=== PATIENT | male | born 1950 | race Caucasian/White ===

== ENCOUNTER → 2017-04-21 | Outpatient (CLI) | payer MEDICARE ==
--- NOTE | 2017-04-21 10:18 | ECHOF ---
Referral Reason:I25.5 Ischemic Cardiomyopathy MEASUREMENTS -------- HEIGHT: 182.9 cm WEIGHT: 77.1 kg BP: IVSd: 0.8 cm (0.6 - 1.1) LVIDd: 7.1 cm (3.9 - 5.3) LVPWd: 1.3 cm (0.6 - 1.1) IVSs: 0.8 cm LVIDs: 6.1 cm LVPWs: 1.0 cm LAESV Index (A-L): 37.42 ml/m Ao Diam: 3.1 cm (2.0 - 3.7) AV Cusp: 1.6 cm (1.5 - 2.6) LA Diam: 4.4 cm (2.7 - 3.8) MV EXCURSION: 14.577 mm (> 18.000) MV EF SLOPE: 56 mm/s (70 - 150) EPSS: 3.0 cm MV E Reagan: 0.90 m/s MV DecT: 157 ms MV A Reagan: 0.40 m/s MV E/A Ratio: 2.24 AR PHT: 204 ms RAP: 5.00 mmHg RVSP: 35.34 mmHg FINDINGS -------- AICD This was a technically good study. The left ventricle is severely dilated. There is mild concentric left ventricular hypertrophy. Th ere is severe global hypokinesis of LV . Overall left ventricular systolic function is severely imp aired with, an EF between 20 - 25 %. The right ventricle is normal in size and function. LA is midly dilated 29-33ml/m2. The right atrium is normal in size. Aortic valve is trileaflet and is mildly thickened. Trace amount of aortic regurgitation. Severe mitral regurgitation is present. There is a flail leaflet seen. Moderate to severe tricuspid regurgitation present. There is borderline pulmonary artery hypertensi on. The right ventricular systolic pressure, as measured by Doppler, is 35.34mmHg. Pulmonic valve appears structurally normal. The aortic root size is normal. Normal inferior vena cava with normal inspiratory collapse consistent with estimated right atrial pre ssure of 5 mmHg. The pericardium is normal. CONCLUSIONS -------- 1. AICD 2. This was a technically good study. 3. The left ventricle is severely dilated. 4. There is mild concentric left ventricular hypertrophy. 5. There is severe global hypokinesis of LV . 6. Overall left ventricular systolic function is severely impaired with, an EF between 20 - 25 %. 7. The right ventricle is normal in size and function. 8. LA is midly dilated 29-33ml/m2. 9. The right atrium is normal in size. 10. Aortic valve is trileaflet and is mildly thickened. 11. Trace amount of aortic regurgitation. 12. Severe mitral regurgitation is present. 13. There is a flail leaflet seen. 14. Moderate to severe tricuspid regurgitation present. 15. There is borderline pulmonary artery hypertension. 16. The right ventricular systolic pressure, as measured by Doppler, is 35.34mmHg. 17. Pulmonic valve appears structurally normal. 18. The aortic root size is normal. 19. Normal inferior vena cava with normal inspiratory collapse consistent with estimated right atrial pressure of 5 mmHg. 20. The pericardium is normal. DERRICKMAN HELPER: Kathleen Baires RDCS
== END | disposition home or self-care (01) ==
LOC: RADNMMAIN 08:48
PROVIDERS: ATTEND Internal Medicine Clinical Cardiac Electrophysiology
DX: I08.1 Rheumatic disorders of both mitral and tricuspid valves (principal); I25.2 Old myocardial infarction; I27.21 Secondary pulmonary arterial hypertension; Z91.041 Radiographic dye allergy status; Z88.8 Allergy status to other drugs, medicaments and biological substances
CPT/HCPCS: 93306

== ENCOUNTER → 2017-06-19 | Outpatient (CLI) | payer MEDICARE ==
--- NOTE | 2017-06-19 09:05 | BD ---
EXAMINATION TYPE: MG DEXA axial skeleton. DATE OF EXAM: CLINICAL HISTORY: Height: 70.25 inches Weight: 166 FRAX RISK QUESTIONS: Alcohol (3 or more units per day): no Family History (Parent hip fracture): no Glucocorticoids (More than 3mos): unsure (Ex: prednisone, prednisolone, methylprednisolone, dexamethasone, and hydrocortisone). History of Fracture in Adulthood: no Secondary Osteoporosis: 1. Type 1 Diabetes: no 2. Hyperthyroidism: no 4. Malnutrition: no 5. Chronic liver disease: no Rheumatoid Arthritis: no Current Tobacco Use: no RISK FACTORS HISTORY OF: Family History of Osteoporosis: unsure Active: yes Diet low in dairy products/other sources of calcium: no Lost more than 2 inches in height since high school: unsure..patient states may have been about 6 ft tall at one time Frequent falls: no Poor Health: somewhat Hyperparathyroidism: no Adrenal Insufficiency: no MEDICATIONS: Prednisone or other steroids: unsure Thyroid Medications: yes Which medication: Synthroid How Long: about 10 years Osteoporosis Medications: no Additional Medications: heart meds, mutivitamin Additional History: future heart transplant EXAM MEASUREMENTS: Bone mineral densitometry was performed using the [facility]. Bone mineral density as measured about the Lumbar spine is: ----- L1-L4(G/cm2): 1.050 T Score Values are as follows: ----- L2: -1.0 ----- L3: -1.1 ----- L4: -0.7 ----- L1-L4: -1.1 Bone mineral density BASELINE Bone mineral density about the R hip (g/cm2): 0.856 Bone mineral density about the L hip (g/cm2): 0.815 T Score values are as follows: -----R Neck: -1.3 -----L Neck: -1.6 -----R Total: -1.4 -----L Total: -1.9 Bone mineral density BASELINE IMPRESSION: Osteopenia (T Score between -2.5 and -1) in low back and both hips. There is slightly increased risk of fracture and the patient may be considered for treatment. Re-Screen 2-5 years. NOTE: T-SCORE=SD OF THE YOUNG ADULT MEAN.
--- NOTE | 2017-06-19 09:42 | US ---
EXAMINATION TYPE: US abdomen complete DATE OF EXAM: 06/19/2017 COMPARISON: US CLINICAL HISTORY: Z76.82 Organ transplant; per op evaluation for Heart transplant EXAM MEASUREMENTS: Liver Length: 11.6 cm Gallbladder Wall: 0.1 cm CBD: 0.5 cm Spleen: 8.9 cm Right Kidney: 9.4 x 5.0 x 4.1 cm Left Kidney: 9.0 x 5.1 x 4.1 cm Pancreas: Heterogeneous Liver: wnl Gallbladder: wnl Evidence for sonographic Escalera's sign: No CBD: wnl Spleen: wnl Right Kidney: lower pole junctional wedge defect noted lower pole Left Kidney: wnl Upper IVC: wnl Abd Aorta: ectatic appearance is noted with intimal wall thickening, especially mid and distal aorta Portions of pancreas are obscured by overlying bowel gas. Atherosclerotic and ectatic changes are see n in visualized aorta. Visualized liver is unremarkable. IMPRESSION: No acute findings evident.
== END | disposition home or self-care (01) ==
LOC: RADUSWWP 06:50
PROVIDERS: ATTEND Internal Medicine
DX: M85.852 Other specified disorders of bone density and structure, left thigh (principal); M85.851 Other specified disorders of bone density and structure, right thigh; M85.88 Other specified disorders of bone density and structure, other site; Z76.82 Awaiting organ transplant status
CPT/HCPCS: 76700; 77080

== ENCOUNTER 2017-10-03 12:58 | Day surgery (SDC) | payer MEDICARE ==
[2017-09-29 11:47] VITALS: BMI 24.3
[~2017-10-03 12:58] MED LIST: LIDOCAINE 1% 20 ML VIAL (10MG/ML) FOR IV START INTRADERMA PRN; MIDAZOLAM 2 MG/2 ML VIAL IV PRN; ceFAZolin 1,000 MG in SODIUM CHLORIDE 0.9% IRRIGATIO 250 ML IRRIGATION ONE
[2017-10-03] MEDS: SODIUM CHLORIDE 0.9% 1,000 ML IV SCH (13:28)
[2017-10-03] MEDS ORDERED: LIDOCAINE URO-JET JELLY 2% 5 ML KIT ONE (13:32)
[2017-10-03] MEDS ORDERED: LIDOCAINE 1% INJ 10MG/ML (20 ML MDV) ONE ×2 (17:21)
[2017-10-03] MEDS ORDERED: MIDAZOLAM 2 MG/2 ML VIAL ONE (17:31)
[2017-10-03] MEDS ORDERED: fentaNYL (PF) 50 MCG/ML 2 ML AMP ONE (17:31)
[2017-10-03] MEDS ORDERED: diphenhydrAMINE 50 MG/ML 1 ML VIAL ONE (17:31)
[2017-10-03] MEDS ORDERED: methylPREDNISolone SOD SUCCI 125 MG/2 ML VIAL ONE ×2 (17:31→17:37)
[2017-10-03] MEDS ORDERED: methylPREDNISolone SOD SUCCI 40 MG/ML 1 ML VIAL IV ONE (17:50)
[2017-10-03] MEDS: ceFAZolin IN SWFI 2 GM/20 ML SYRINGE IVP ONE ×2 (17:58→18:05)
[2017-10-03] MEDS ORDERED: LIDOCAINE 1% INJ 10MG/ML (20 ML MDV) SQ ONE ×3 (18:19→18:23)
[2017-10-03] MEDS ORDERED: IOPAMIDOL-250 50ML BTL IV ONE (18:48)
[2017-10-03] MEDS ORDERED: IOPAMIDOL-370 50ML BTL INJ ONE (19:05)
[2017-10-03] MEDS ORDERED: HYDROcodone/APAP 5-325MG 1 EACH TAB PO PRN (20:25)
[2017-10-03] MEDS ORDERED: ACETAMINOPHEN TAB 325 MG TAB PO PRN (20:25)
[2017-10-03] MEDS ORDERED: ACETAMINOPHEN IV (For NPO) 1,000 MG in EMPTY BAG 1 BAG IVPB ONE (20:25)
[2017-10-03] MEDS ORDERED: LEVOTHYROXINE 75 MCG TAB PO SCH (21:00)
[2017-10-03] MEDS ORDERED: LEVOTHYROXINE 100 MCG TAB PO SCH (21:00)
[2017-10-03] MEDS ORDERED: ATORVASTATIN 20 MG TAB PO SCH (21:00)
[2017-10-03] MEDS ORDERED: FERROUS SULFATE 325 MG TAB PO SCH (21:00)
[2017-10-03] MEDS ORDERED: MAGNESIUM CHLORIDE 71.5 MG PO SCH (21:00)
--- NOTE | 2017-10-03 21:17 | CE ---
CARDIAC ELECTROPHYSIOLOGY REPORT A 67-year-old male patient with severe ischemic cardiomyopathy, severe heart failure, mitral regurgitation, awaiting cardiac transplant versus LVAD. He has an underlying left bundle branch block. In view of his symptoms, the decision was made to proceed with an upgrade to a biventricular ICD. He already has a dual-chamber ICD in place. He has a history of ventricular tachycardia and ventricular fibrillation and is on nitrate and drug therapy. He has undergone VT ablations in the past. The patient is brought to the EP lab in a fasting state. Written informed consent was obtained prior to the procedure. The left shoulder area was prepped and draped as per protocol. 1% lidocaine was used for local anesthesia. An incision was made over the generator and carried down to the level of the generator. The old generator was explanted. This was a Medtronic defibrillator, model number [id number] Shira SIMMONS, serial number [id number]. Partial capsulectomy was performed. Access was obtained and at the level of the 2nd rib and the axillary vein and a wire was placed in the right heart. Appropriate sheaths were placed, coronary sinus was cannulated. Coronary sinus venogram was performed. The patient had a middle cardiac vein, posterolateral vein, lateral vein. The posterolateral and the lateral vein had a loop at a junction with coronary sinus and se did the posterolateral vein. The lead was more stable in the posterior lateral vein. Initially Medtronic leads were used; however, the leads would not go into the vein on account of this loop of vein very close to the coronary sinus body. A [employer] lead caregiver was used and this was placed distally into the LV in a very stable position. The lead was a [employer], model #[id number], 86 cm in length and serial number [id number]. The pacing thresholds were excellent for all LV poles. Finally, synchronized LV pacing was performed with his underlying QRS with LV2, LV3 poles. The threshold was 0.7 V at 0.5 milliseconds, impedance of 1184. LV sensing was 5.8 mV. The atrial, RV and LV leads were then connected to the new generator (Medtronic Viva quad XT, model number [id number], serial number [id number]. The RV and atrial thresholds are excellent. The wound was then closed in 3 layers and dressed per protocol. DFT testing was not performed on account of the severity of his heart failure. 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 PLAN: Continue current medications and follow up in the device clinic in 5 days. DENISE / AARON: [id number] /
[2017-10-03] MEDS: CARVEDILOL 3.125 MG TAB PO SCH (21:58)
[2017-10-03] MEDS: APIXABAN 5 MG TAB PO SCH (21:58)
[2017-10-03] MEDS: MEXILETINE 150 MG CAP PO SCH (21:59)
[2017-10-03] MEDS: LISINOPRIL 2.5 MG TAB PO SCH (21:59)
[2017-10-03] MEDS: ISOSORBIDE MONONITRATE 20 MG TAB PO SCH (21:59)
[2017-10-04] MEDS: ceFAZolin IN SWFI 2 GM/20 ML SYRINGE IVP SCH ×4 (00:16→17:28)
[2017-10-04] MEDS: SODIUM CHLORIDE 0.9% 1,000 ML IV SCH ×3 (05:32→05:33)
[2017-10-04] MEDS: LACTATED RINGERS 1,000 ML IV SCH ×2 (05:32→05:36)
--- NOTE | 2017-10-04 07:51 | P.PCN ---
Preoperative Diagnosis: Addendum to biventricular ICD upgrade This is long procedure on account of the patient's left ventricular coronary venous anatomy. He had a posterior lateral and a lateral vein both very tortuous especially at the junction with the coronary sinus body. The guidewire did not pass into these veins easily on account of the tortuosity veins The Medtronic LV time lead would not pass over the guidewire Finally [employer] medical LV lead was positioned in a very stable position in the posterior lateral vein with excellent pacing parameters impedances and sensing No diaphragmatic stimulation noted
--- NOTE | 2017-10-04 08:27 | DS ---
DISCHARGE SUMMARY Grant Lawton has severe heart failure with a left bundle branch block and severe ischemic cardiomyopathy, chronic systolic LV dysfunction, awaiting cardiac transplant who underwent upgrade to a biventricular ICD as a bridge to cardiac transplant. He is doing well this morning. Head and neck examination normal. He does have a hepatic jugular reflux. Heart sounds S1, S2 are normal. There is a pansystolic murmur of mitral regurgitation. Breath sounds are equal bilaterally. No rhonchi, no crackles. Abdomen is soft. Extremities are warm. The ICD site is healing well. There is no soakage, no hematoma. The chest x-ray was reviewed and appears to be in good position. SUGGEST: Complete IV antibiotics and if his device interrogation is within normal limits, he may go home and follow up in the device clinic in 5 days and follow up with me as scheduled. DENISE / AARON: [id number] /
[2017-10-04] MEDS ORDERED: ASPIRIN 81 MG PO SCH (09:00)
[2017-10-04] MEDS ORDERED: ISONIAZID 100 MG TABLET PO SCH (09:00)
[2017-10-04] MEDS ORDERED: POTASSIUM CHLORIDE ER 10 MEQ TAB.ER.PRT PO SCH (09:00)
[2017-10-04] MEDS ORDERED: SOTALOL 80 MG TAB PO SCH (09:00)
[2017-10-04] MEDS ORDERED: EZETIMIBE 10 MG TAB PO SCH (09:00)
[2017-10-04] MEDS ORDERED: BUMETANIDE 1 MG TAB PO SCH (09:00)
[2017-10-04] MEDS ORDERED: PYRIDOXINE 50 MG TAB PO SCH (09:00)
[2017-10-04] MEDS: CARVEDILOL 3.125 MG TAB PO SCH (09:23)
[2017-10-04] MEDS: LISINOPRIL 2.5 MG TAB PO SCH (09:23)
[2017-10-04] MEDS: ISOSORBIDE MONONITRATE 20 MG TAB PO SCH ×2 (09:24→16:41)
[2017-10-04] MEDS: APIXABAN 5 MG TAB PO SCH (09:24)
[2017-10-04] MEDS: MEXILETINE 150 MG CAP PO SCH ×2 (09:25→16:41)
--- NOTE | 2017-10-04 09:38 | XR ---
EXAMINATION TYPE: XR chest 2V DATE OF EXAM: 10/04/2017 COMPARISON: 06/12/2017 TECHNIQUE: PA and lateral views submitted. HISTORY: Lead placement check FINDINGS: The lungs are clear and there is no pneumothorax, pleural effusion, or focal pneumonia. Hyperinflat ion suggests COPD. There is a triple lead pacemaker with 2 leads overlying the ventricle and a proxim al lead overlying the right atrium. There appears to be a calcification overlying the left heart bord er which may be related to pericardial calcification or possibly calcification of a cardiac aneurysm. IMPRESSION: 1. Triple lead pacemaker placement no evidence of pneumothorax. 2. Calcification along the left heart border can be seen with pericardial calcification or calcificat ion the cardiac wall aneurysm. 3. Cardiomegaly and correlate for COPD.
[2017-10-04 11:57] VITALS: RESP 18
[2017-10-04 15:28] VITALS: BP 96/55; PULSE 62; TEMP 98.4
== END 2017-10-04 18:40 | disposition home or self-care (01) ==
LOC: CATHEP 12:58 → 3OBS 20:20 → CATHEP 10-04 18:40
PROVIDERS: ATTEND Internal Medicine Clinical Cardiac Electrophysiology
DX: Z45.02 Encounter for adjustment and management of automatic implantable cardiac defibrillator (principal); Q24.5 Malformation of coronary vessels; I25.5 Ischemic cardiomyopathy; I25.10 Atherosclerotic heart disease of native coronary artery without angina pectoris; Z95.1 Presence of aortocoronary bypass graft; I34.0 Nonrheumatic mitral (valve) insufficiency; I11.0 Hypertensive heart disease with heart failure; I50.42 Chronic combined systolic (congestive) and diastolic (congestive) heart failure; I44.7 Left bundle-branch block, unspecified; E78.5 Hyperlipidemia, unspecified; I47.2 Ventricular tachycardia; I25.2 Old myocardial infarction; Z79.01 Long term (current) use of anticoagulants; Z79.82 Long term (current) use of aspirin; Z79.890 Hormone replacement therapy; Z79.899 Other long term (current) drug therapy; Z88.5 Allergy status to narcotic agent; Z91.041 Radiographic dye allergy status; Z86.73 Personal history of transient ischemic attack (TIA), and cerebral infarction without residual deficits; Z87.891 Personal history of nicotine dependence
CPT/HCPCS: 33225; 33264; 71046; C1769 ×6; C1892; C1730; C1900 ×2; C1882; J2250; J1200; J2920; J2930; J0690 ×3; J2001; J3010; Q9966; Q9967

== ENCOUNTER 2021-03-18 13:38 | Inpatient (IN) | payer MEDICARE ==
[2021-03-18 14:06] VITALS: TEMP 97.4
--- NOTE | 2021-03-18 14:13 | ED ---
General Adult HPI - General Chief complaint: Recheck/Abnormal Lab/Rx Stated complaint: Altered mental Time Seen by Provider: 03/18/21 13:41 Source: patient, family, EMS, RN notes reviewed Mode of arrival: EMS Limitations: no limitations - History of Present Illness Initial comments: Patient is a pleasant 70-year-old male presenting to the emergency department with family concerns for change in mental status. Patient feels he is doing fine and has no concerns. Patient states he was up in [place] earlier today for a mission. Family helps provide history. Patient reportedly has been receiving messages from [employer]. Patient is unable to state why he went to [place] otherwise. Patient states he was supposed to meet some sort of a property controller. Patient has had some mild similar symptoms intermittently this week however worse today. There is also an episode where patient thought he saw a sailboat that actually was not present. - Related Data Home Medications Medication Instructions Recorded Confirmed Apixaban [Eliquis] 5 mg PO BID 02/29/16 10/03/17 Aspirin 81 mg PO DAILY 02/29/16 10/03/17 Atorvastatin [Lipitor] 20 mg PO HS 02/29/16 10/03/17 Ezetimibe [Zetia] 10 mg PO DAILY 02/29/16 10/03/17 Ferrous Sulfate [Iron (65 MG 65 mg PO HS 02/29/16 10/03/17 Elemental)] Levothyroxine Sodium [Synthroid] 175 mcg PO HS 02/29/16 09/29/17 Magnesium Chloride [Slow-Mag] 71.5 mg PO HS 02/29/16 10/03/17 Mexiletine HCl 150 mg PO TID 02/29/16 10/03/17 Sotalol HCl [Sotalol] 160 mg PO QAM 02/29/16 10/03/17 lisinopriL [Zestril] 2.5 mg PO BID 02/29/16 10/03/17 Bumetanide [BUMEX] 2 mg PO DAILY 09/29/17 10/03/17 Isoniazid 300 mg PO DAILY 09/29/17 10/03/17 Isosorbide Mononitrate 20 mg PO TID 09/29/17 10/03/17 Potassium Chloride ER [K-Dur 10] 10 meq PO DAILY 09/29/17 10/03/17 Pyridoxine [Vitamin B-6] 25 mg PO DAILY 09/29/17 10/03/17 carvediloL [Coreg] 3.125 mg PO BID 09/29/17 10/03/17 Allergies Allergy/AdvReac Type Severity Reaction Status Date / Time Iodinated Contrast Media Allergy Rash/Hives Verified 03/18/21 13:56 [Iodinated Contrast Media - IV Dye] Iodine and Iodide Containing Allergy Rash/Hives Verified 03/18/21 13:56 Produc meperidine [From Demerol] Allergy "flatlined" Verified 03/18/21 13:56 Review of Systems ROS Statement: Those systems with pertinent positive or pertinent negative responses have been documented in the HPI. ROS Other: All systems not noted in ROS Statement are negative. Constitutional: Denies: fever Eyes: Denies: eye pain ENT: Denies: ear pain Respiratory: Denies: cough Cardiovascular: Denies: chest pain Endocrine: Denies: fatigue Gastrointestinal: Denies: abdominal pain Genitourinary: Denies: dysuria Musculoskeletal: Denies: back pain Neurological: Reports: as per HPI. Denies: headache, weakness Past Medical History Past Medical History: CVA/TIA, Myocardial Infarction ([place]), Thyroid Disorder Additional Past Medical History / Comment(s): See Dr Darby's H&P,CVA 2004-no residual Last Myocardial Infarction Date:: 1985 History of Any Multi-Drug Resistant Organisms: None Reported Past Surgical History: AICD, Cardiac Ablation, Coronary Bypass/CABG, Heart Catheterization, Hernia Repair Additional Past Surgical History / Comment(s): CABG 1998-3 vessel, cardia ablation x - or 4,Defribrillator -Medtronic-Lt chest,Wires replaced Past Anesthesia/Blood Transfusion Reactions: No Reported Reaction Type of Cardiac Device: AICD Device Placement Date:: 2009 Past Psychological History: Anxiety Smoking Status: Never smoker Past Alcohol Use History: Occasional Past Drug Use History: None Reported - Past Family History Mother History Unknown: Yes Father History Unknown: Yes General Exam Limitations: no limitations General appearance: alert, in no apparent distress Head exam: Present: normocephalic Eye exam: Present: normal appearance, PERRL, EOMI ENT exam: Present: normal oropharynx Neck exam: Present: normal inspection. Absent: meningismus Respiratory exam: Present: normal lung sounds bilaterally Cardiovascular Exam: Present: regular rate, normal rhythm GI/Abdominal exam: Present: soft. Absent: distended, tenderness Extremities exam: Present: normal inspection Neurological exam: Present: alert, oriented X3, CN II-XII intact. Absent: motor sensory deficit Expanded Neurological exam: Present: protecting the airway Patient oriented to: Present: person, place, time Speech: Present: fluid speech Cranial nerves: EOM's Intact: Normal Sensory exam: Upper Extremity Light Touch: Normal, Lower Extremity Light Touch: Normal Motor strength exam: RUE: 5, LUE: 5, RLE: 5, LLE: 5 Eye Response: (4) open spontaneously Motor Response: (6) obeys commands Verbal Response: (5) oriented Psychiatric exam: Present: normal affect, normal mood Skin exam: Present: normal color Course Vital Signs 03/18/21 03/18/21 13:56 15:50 Temperature 97.4 F L Pulse Rate 63 60 Respiratory 20 16 Rate Blood Pressure 115/59 112/72 O2 Sat by Pulse 100 99 Oximetry EKG Findings - EKG Comments: EKG Findings:: Paced rhythm with a rate of 60. WV 12. QRS 142. QT 550. QTC 550. Superior axis. Wide-complex QRS. No acute ST change. Medical Decision Making - Medical Decision Making Patient reevaluated and resting comfortably in bed. Unchanged. Patient and family updated on results and plan. Case was discussed with Dr. Thacker, who will admit - Lab Data Result diagrams: 03/18/21 14:11 03/18/21 14:11 Lab Results 03/18/21 03/18/21 03/18/21 Range/Units 14:11 14:11 14:11 WBC 5.6 (3.8-10.6) k/uL RBC 3.86 L (4.30-5.90) m/uL Hgb 13.2 (13.0-17.5) gm/dL Hct 39.6 (39.0-53.0) % MCV 102.6 H (80.0-100.0) fL MCH 34.2 (25.0-35.0) pg MCHC 33.4 (31.0-37.0) g/dL RDW 13.0 (11.5-15.5) % Plt Count 176 (150-450) k/uL MPV 7.9 Neutrophils % (Manual) 63 % Band Neuts % (Manual) 3 % Lymphocytes % (Manual) 30 % Monocytes % (Manual) 1 % Eosinophils % (Manual) 3 % Neutrophils # (Manual) 3.60 (1.3-7.7) k/uL Lymphocytes # (Manual) 1.68 (1.0-4.8) k/uL Monocytes # (Manual) 0.06 (0-1.0) k/uL Eosinophils # (Manual) 0.17 (0-0.7) k/uL Nucleated RBCs 0 (0-0) /100 WBC Manual Slide Review Performed Macrocytosis Slight PT 12.7 H (9.0-12.0) sec INR 1.2 H (<1.2) APTT 25.9 (22.0-30.0) sec Sodium (137-145) mmol/L Potassium (3.5-5.1) mmol/L Chloride (98-107) mmol/L Carbon Dioxide (22-30) mmol/L Anion Gap mmol/L BUN (9-20) mg/dL Creatinine (0.66-1.25) mg/dL Est GFR (CKD-EPI)AfAm (>60 ml/min/1.73 sqM) Est GFR (CKD-EPI)NonAf (>60 ml/min/1.73 sqM) Glucose (74-99) mg/dL Calcium (8.4-10.2) mg/dL Total Bilirubin (0.2-1.3) mg/dL AST (17-59) U/L ALT (4-49) U/L Alkaline Phosphatase (38-126) U/L Troponin I (0.000-0.034) ng/mL Total Protein (6.3-8.2) g/dL Albumin (3.5-5.0) g/dL TSH (0.465-4.680) mIU/L Urine Color Yellow Urine Appearance Clear (Clear) Urine pH 5.0 (5.0-8.0) Ur Specific [place] 1.013 (1.001-1.035) Urine Protein Negative (Negative) Urine Glucose (UA) Negative (Negative) Urine Ketones 1+ H (Negative) Urine Blood Negative (Negative) Urine Nitrite Negative (Negative) Urine Bilirubin Negative (Negative) Urine Urobilinogen <2.0 (<2.0) mg/dL Ur Leukocyte Esterase Negative (Negative) Urine Opiates Screen Not Detected (NotDetected) Ur Oxycodone Screen Not Detected (NotDetected) Urine Methadone Screen Not Detected (NotDetected) Ur Propoxyphene Screen Not Detected (NotDetected) Ur Barbiturates Screen Not Detected (NotDetected) U Tricyclic Antidepress Not Detected (NotDetected) Ur Phencyclidine Scrn Not Detected (NotDetected) Ur Amphetamines Screen Detected H (NotDetected) U Methamphetamines Scrn Not Detected (NotDetected) U Benzodiazepines Scrn Not Detected (NotDetected) Urine Cocaine Screen Not Detected (NotDetected) U Marijuana (THC) Screen Not Detected (NotDetected) Serum Alcohol mg/dL 03/18/21 03/18/21 Range/Units 14:11 14:11 WBC (3.8-10.6) k/uL RBC (4.30-5.90) m/uL Hgb (13.0-17.5) gm/dL Hct (39.0-53.0) % MCV (80.0-100.0) fL MCH (25.0-35.0) pg MCHC (31.0-37.0) g/dL RDW (11.5-15.5) % Plt Count (150-450) k/uL MPV Neutrophils % (Manual) % Band Neuts % (Manual) % Lymphocytes % (Manual) % Monocytes % (Manual) % Eosinophils % (Manual) % Neutrophils # (Manual) (1.3-7.7) k/uL Lymphocytes # (Manual) (1.0-4.8) k/uL Monocytes # (Manual) (0-1.0) k/uL Eosinophils # (Manual) (0-0.7) k/uL Nucleated RBCs (0-0) /100 WBC Manual Slide Review Macrocytosis PT (9.0-12.0) sec INR (<1.2) APTT (22.0-30.0) sec Sodium 136 L (137-145) mmol/L Potassium 4.4 (3.5-5.1) mmol/L Chloride 100 (98-107) mmol/L Carbon Dioxide 19 L (22-30) mmol/L Anion Gap 17 mmol/L BUN 42 H (9-20) mg/dL Creatinine 2.68 H (0.66-1.25) mg/dL Est GFR (CKD-EPI)AfAm 27 (>60 ml/min/1.73 sqM) Est GFR (CKD-EPI)NonAf 23 (>60 ml/min/1.73 sqM) Glucose 90 (74-99) mg/dL Calcium 10.0 (8.4-10.2) mg/dL Total Bilirubin 1.2 (0.2-1.3) mg/dL AST 32 (17-59) U/L ALT 25 (4-49) U/L Alkaline Phosphatase 75 (38-126) U/L Troponin I 0.033 (0.000-0.034) ng/mL Total Protein 8.1 (6.3-8.2) g/dL Albumin 4.7 (3.5-5.0) g/dL TSH 0.724 (0.465-4.680) mIU/L Urine Color Urine Appearance (Clear) Urine pH (5.0-8.0) Ur Specific [place] (1.001-1.035) Urine Protein (Negative) Urine Glucose (UA) (Negative) Urine Ketones (Negative) Urine Blood (Negative) Urine Nitrite (Negative) Urine Bilirubin (Negative) Urine Urobilinogen (<2.0) mg/dL Ur Leukocyte Esterase (Negative) Urine Opiates Screen (NotDetected) Ur Oxycodone Screen (NotDetected) Urine Methadone Screen (NotDetected) Ur Propoxyphene Screen (NotDetected) Ur Barbiturates Screen (NotDetected) U Tricyclic Antidepress (NotDetected) Ur Phencyclidine Scrn (NotDetected) Ur Amphetamines Screen (NotDetected) U Methamphetamines Scrn (NotDetected) U Benzodiazepines Scrn (NotDetected) Urine Cocaine Screen (NotDetected) U Marijuana (THC) Screen (NotDetected) Serum Alcohol <10 mg/dL - Radiology Data Radiology results: report reviewed (Computed tomography scan the brain shows no acute hemorrhage or shift. Mild atrophy. Old left frontal infarct.), image reviewed (Two-view chest x-ray shows no acute process.) Disposition Clinical Impression: Altered mental status Disposition: ADMITTED IP TO THIS HOSP Is patient prescribed a controlled substance at d/c from ED?: No Referrals: Karuna Hill MD [Primary Care Provider] - 1-2 days Decision Time: 16:14
[2021-03-18 14:40] LABS: INR 1.2 (<1.2); Partial Thromboplastin Time 25.9 sec (22.0-30.0); Prothrombin Time 12.7 sec (9.0-12.0)
[2021-03-18 14:47] LABS: HCT 39.6 % (39.0-53.0); HGB 13.2 gm/dL (13.0-17.5); MCH 34.2 pg (25.0-35.0); MCHC 33.4 g/dL (31.0-37.0); MCV 102.6 fL (80.0-100.0); Macrocytosis Slight; Mean Platelet Volume 7.9; Platelet Count 176 k/uL (150-450); RBC 3.86 m/uL (4.30-5.90); WBC 5.6 k/uL (3.8-10.6)
--- NOTE | 2021-03-18 14:47 | CT ---
EXAMINATION TYPE: CT brain wo con DATE OF EXAM: 03/18/2021 HISTORY: confusion CT DLP: 1143.4 mGycm. Automated Exposure Control for Dose Reduction was Utilized. TECHNIQUE: CT scan of the head is performed without contrast. COMPARISON: None. FINDINGS: There is no acute intracranial hemorrhage or midline shift identified. There is mild diff use ventricular and sulcal prominence consistent with diffuse age-related cerebral atrophy. Septum pe llucidum vergae is present. Old infarct left frontal lobe. Mild low-attenuation in the periventricul ar white matter. Scleral calcification bilateral globes. Visualized paranasal sinuses are clear. IMPRESSION: No acute intracranial hemorrhage or midline shift. There is mild diffuse age-related ce rebral atrophy and chronic small vessel ischemic change with old left frontal lobe infarct present.
--- NOTE | 2021-03-18 14:48 | XR ---
EXAMINATION TYPE: XR chest 2V DATE OF EXAM: 03/18/2021 COMPARISON: 10/04/2017 HISTORY: Shortness of breath TECHNIQUE: Frontal and lateral views of the chest are obtained. FINDINGS: Scattered senescent parenchymal changes noted. Hyperinflation compatible with COPD. No evidence for infiltrate. No evidence for atelectasis. Heart size is stable. Mediastinal structures are stable and grossly unremarkable. No evidence for hilar prominence. Degenerative changes dorsal spine. IMPRESSION: 1. No evidence for acute pulmonary disease.
[2021-03-18 15:13] LABS: ALT 25 U/L (4-49); AST 32 U/L (17-59); African American GFR (CKD) 27 (>60 ml/min/1.73 sqM); Albumin 4.7 g/dL (3.5-5.0); Alcohol <10 mg/dL; Alkaline Phosphatase 75 U/L (38-126); Anion Gap 17 mmol/L; Band Neutrophils % 3 %; Blood Urea Nitrogen 42 mg/dL (9-20); Carbon Dioxide 19 mmol/L (22-30); Chloride 100 mmol/L (98-107); Eosinophils # (M) 0.17 k/uL (0-0.7); Glucose 90 mg/dL (74-99); Lymphocytes # (M) 1.68 k/uL (1.0-4.8); Monocytes # (M) 0.06 k/uL (0-1.0); Neutrophils % (M) 63 %; Non-African American GFR(CKD) 23 (>60 ml/min/1.73 sqM); Nucleated Red Blood Cells 0 /100 WBC (0-0); Potassium 4.4 mmol/L (3.5-5.1); Sodium 136 mmol/L (137-145); Total Bilirubin 1.2 mg/dL (0.2-1.3); Total Cells Counted 100; Total Protein 8.1 g/dL (6.3-8.2)
[2021-03-18 15:47] LABS: Appearance,Urine Clear (Clear); Bilirubin,Urine Negative (Negative); Blood,Urine Negative (Negative); Color,Urine Yellow; Glucose,Urine (UA) Negative (Negative); Ketones,Urine 1+ (Negative); Leukocyte Esterase,Urine Negative (Negative); Nitrite,Urine Negative (Negative); Protein,Urine Negative (Negative); Specific Gravity,Urine 1.013 (1.001-1.035); Urobilinogen,Urine <2.0 mg/dL (<2.0)
[2021-03-18 16:04] VITALS: RESP 16
[2021-03-18 16:06] LABS: Amphetamine Screen,Urine Detected (NotDetected); Barbiturate Screen,Urine Not Detected (NotDetected); Benzodiazepines Screen,Urine Not Detected (NotDetected); Cocaine Screen,Urine Not Detected (NotDetected); Methadone Screen, Urine Not Detected (NotDetected); Opiate Screen,Urine Not Detected (NotDetected); Oxycodone Screen, Urine Not Detected (NotDetected); Phencyclidine Screen,Urine Not Detected (NotDetected); Tricyclic Antidepressant,Urine Not Detected (NotDetected); Urn Cannabinoid Scrn Not Detected (NotDetected)
[2021-03-18] MEDS ORDERED: NALOXONE 0.4 MG/ML 1 ML VIAL IV PRN (16:14)
[2021-03-18] MEDS ORDERED: SODIUM CHLORIDE 0.9% 1,000 ML IV SCH (16:15)
[2021-03-18] MEDS ORDERED: SODIUM CHLORIDE 0.9% 250 ML IV STA (17:22)
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
[2021-03-19 00:26] VITALS: BP 101/74; PULSE 63
[2021-03-20 11:03] LABS: Methylmalonic Acid 0.26 umol/L (<0.40)
== END 2021-03-18 21:31 | disposition left against medical advice (07) | DRG 948 ==
LOC: EC 13:38 → 5NMEDONC 16:15
PROVIDERS: ADMIT Internal Medicine; ATTEND Internal Medicine
DX: R41.0 Disorientation, unspecified (principal); E03.9 Hypothyroidism, unspecified; F17.210 Nicotine dependence, cigarettes, uncomplicated; F22 Delusional disorders; Z20.822 Contact with and (suspected) exposure to COVID-19; F41.9 Anxiety disorder, unspecified; G31.89 Other specified degenerative diseases of nervous system; I25.10 Atherosclerotic heart disease of native coronary artery without angina pectoris; I25.2 Old myocardial infarction; I48.91 Unspecified atrial fibrillation; N18.9 Chronic kidney disease, unspecified; Z79.01 Long term (current) use of anticoagulants; Z79.82 Long term (current) use of aspirin; Z79.890 Hormone replacement therapy; Z79.899 Other long term (current) drug therapy; Z86.73 Personal history of transient ischemic attack (TIA), and cerebral infarction without residual deficits; Z95.1 Presence of aortocoronary bypass graft; Z95.810 Presence of automatic (implantable) cardiac defibrillator
CPT/HCPCS: 36415; 70450; 71046; 80053; 80306; 80320; 81003; 82607; 82746; 83921; 84425; 84443; 84484; 85025; 85610; 85730; 87635; 93005; 93880; 99285

== ENCOUNTER 2021-03-18 21:25 | Inpatient (IN) | payer MEDICARE ==
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
[2021-03-18 22:04] LABS: Basophils % (A) 1 %; Eosinophils # (A) 0.2 k/uL (0-0.7); Eosinophils % (A) 4 %; HCT 35.8 % (39.0-53.0); HGB 12.6 gm/dL (13.0-17.5); Lymphocytes # (A) 0.9 k/uL (1.0-4.8); Lymphocytes % (A) 23 %; MCH 35.4 pg (25.0-35.0); MCHC 35.2 g/dL (31.0-37.0); MCV 100.4 fL (80.0-100.0); Mean Platelet Volume 8.3; Monocytes # (A) 0.1 k/uL (0-1.0); Monocytes % (A) 3 %; Neutrophils # (A) 2.6 k/uL (1.3-7.7); Neutrophils % (A) 67 %; Platelet Count 141 k/uL (150-450); RBC 3.56 m/uL (4.30-5.90); RDW 12.5 % (11.5-15.5); WBC 3.9 k/uL (3.8-10.6)
[2021-03-18 22:14] LABS: Chloride 100 mmol/L (98-107)
[2021-03-18 22:15] LABS: INR 1.3 (<1.2); Partial Thromboplastin Time 23.4 sec (22.0-30.0); Prothrombin Time 12.9 sec (9.0-12.0)
[2021-03-18 22:17] LABS: ALT 25 U/L (4-49); AST 36 U/L (17-59); African American GFR (CKD) 27 (>60 ml/min/1.73 sqM); Albumin 4.3 g/dL (3.5-5.0); Alcohol <10 mg/dL; Alkaline Phosphatase 65 U/L (38-126); Anion Gap 14 mmol/L; Blood Urea Nitrogen 46 mg/dL (9-20); Calcium 9.2 mg/dL (8.4-10.2); Carbon Dioxide 21 mmol/L (22-30); Glucose 111 mg/dL (74-99); Non-African American GFR(CKD) 24 (>60 ml/min/1.73 sqM); Potassium 3.8 mmol/L (3.5-5.1); Sodium 135 mmol/L (137-145); Total Bilirubin 0.9 mg/dL (0.2-1.3); Total Protein 7.4 g/dL (6.3-8.2)
[2021-03-18] MEDS ORDERED: SODIUM CHLORIDE 0.9% 1,000 ML IV ONE (22:28)
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
--- NOTE | 2021-03-18 22:34 | XR ---
EXAMINATION TYPE: XR chest 1V portable DATE OF EXAM: 03/18/2021 COMPARISON: Today HISTORY: Altered mental status TECHNIQUE: Single view FINDINGS: There is no heart failure nor confluent pneumonic infiltrate. Costophrenic angles are clear . There is left axillary pacemaker. Thoracic aorta is atheromatous. There are sternal wires. IMPRESSION: No active cardiopulmonary disease. No change
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
[2021-03-18] MEDS ORDERED: MAG HYDROX/AL HYDROX/SIMETH 30 ML CUP PO PRN (22:54)
[2021-03-18] MEDS ORDERED: NALOXONE 0.4 MG/ML 1 ML VIAL IV PRN (22:54)
[2021-03-18] MEDS ORDERED: DIPH,PERTUS(ACELL)TETVAC-LF 0.5 ML VIAL IM ONE (23:03)
[2021-03-18] MEDS ORDERED: LIDOCAINE 1% INJ 10MG/ML (20 ML MDV) SQ ONE (23:09)
[2021-03-19] MEDS ORDERED: TOPICAL SKIN ADHESIVE 1 EACH AMP TOPICAL ONE
[2021-03-19 05:18] LABS: Appearance,Urine Clear (Clear); Bilirubin,Urine Negative (Negative); Blood,Urine Negative (Negative); Color,Urine Yellow; Glucose,Urine (UA) Negative (Negative); Ketones,Urine 1+ (Negative); Leukocyte Esterase,Urine Negative (Negative); Nitrite,Urine Negative (Negative); PH, Urine 5.5 (5.0-8.0); Protein,Urine Negative (Negative); Specific Gravity,Urine 1.015 (1.001-1.035); Urobilinogen,Urine <2.0 mg/dL (<2.0)
[2021-03-19] MEDS: SOTALOL 80 MG TAB PO SCH ×2 (08:39→20:30)
[2021-03-19] MEDS: MEXILETINE 150 MG CAP PO SCH ×2 (08:39→20:29)
[2021-03-19] MEDS: ATORVASTATIN 20 MG TAB PO SCH (08:39)
[2021-03-19] MEDS ORDERED: ONDANSETRON 4 MG/2 ML VIAL IVP PRN (11:57)
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
[2021-03-19] MEDS: SODIUM CHLORIDE 0.9% 1,000 ML IV SCH (12:32)
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
--- NOTE | 2021-03-19 15:10 | XR ---
EXAMINATION TYPE: XR chest 2V DATE OF EXAM: 03/19/2021 COMPARISON: 03/18/2021 TECHNIQUE: PA and lateral views submitted. HISTORY: Chest pain FINDINGS: The lungs are clear and there is no pneumothorax, pleural effusion, or focal pneumonia. Heart is en larged and there is a cardiac device and postoperative change and atherosclerotic change aorta. Biapi joão pleural thickening. Multiple lead cardiac device seen. Degenerative change of the spine. No overt failure. Subsegmental changes right lung base. IMPRESSION: 1. Severe cardiomegaly with basilar atelectasis favored over infiltrate. Correlate clinically..
[2021-03-19 15:32] LABS: ALT 22 U/L (4-49); AST 32 U/L (17-59); African American GFR (CKD) 48 (>60 ml/min/1.73 sqM); Albumin 3.8 g/dL (3.5-5.0); Albumin/Globulin Ratio 1.3; Alkaline Phosphatase 60 U/L (38-126); Anion Gap 15 mmol/L; Blood Urea Nitrogen 29 mg/dL (9-20); Carbon Dioxide 19 mmol/L (22-30); Chloride 106 mmol/L (98-107); Globulin 2.9 g/dL; Glucose 74 mg/dL (74-99); Non-African American GFR(CKD) 41 (>60 ml/min/1.73 sqM); Potassium 4.2 mmol/L (3.5-5.1); Sodium 140 mmol/L (137-145); Total Bilirubin 0.8 mg/dL (0.2-1.3); Total Protein 6.7 g/dL (6.3-8.2)
[2021-03-19 16:15] LABS: HCT 31.8 % (39.0-53.0); HGB 11.1 gm/dL (13.0-17.5); MCH 36.5 pg (25.0-35.0); MCHC 34.8 g/dL (31.0-37.0); MCV 104.8 fL (80.0-100.0); Macrocytosis Slight; Mean Platelet Volume 8.1; Platelet Count 166 k/uL (150-450); RBC 3.04 m/uL (4.30-5.90); RDW 13.1 % (11.5-15.5); WBC 5.6 k/uL (3.8-10.6)
[2021-03-19 17:00] LABS: Eosinophils # (M) 0.17 k/uL (0-0.7); Lymphocytes # (M) 0.95 k/uL (1.0-4.8); Monocytes # (M) 0.95 k/uL (0-1.0); Neutrophils # (M) 3.53 k/uL (1.3-7.7); Neutrophils % (M) 63 %; Nucleated Red Blood Cells 0 /100 WBC (0-0); Total Cells Counted 100
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
[2021-03-19] MEDS: ACETAMINOPHEN IV (For NPO) 1,000 MG in EMPTY BAG 1 BAG IVPB PRN (19:01)
--- NOTE | 2021-03-19 19:07 | US ---
EXAMINATION TYPE: US carotid duplex BILAT DATE OF EXAM: 03/19/2021 COMPARISON: US yesterday CLINICAL HISTORY: Altered mental status. Patient had Right carotid system nearly completed by US yest ignacio, then refused remainder of exam, thus, completed Right ECA, ICA images with PW Doppler; right v ertebral artery and left carotid system today as patient is stable and oriented. EXAM MEASUREMENTS: RIGHT: Peak Systolic Velocity (PSV) cm/sec ----- Right CCA: 106.0 ----- Right ICA: 116.2 ----- Right ECA: 95.8 ICA/CCA ratio: 1.1 RIGHT: End Diastole cm/sec ----- Right CCA: 26.0 ----- Right ICA: 27.5 ----- Right ECA: 12.9 LEFT: Peak Systolic Velocity (PSV) cm/sec ----- Left CCA: 98.3 ----- Left ICA: 109.9 ----- Left ECA: 79.4 ICA/CCA ratio: 1.1 LEFT: End Diastole cm/sec ----- Left CCA: 28.5 ----- Left ICA: 28.5 ----- Left ECA: 11.0 VERTEBRALS (direction of flow): Right Vertebral: Antegrade Left Vertebral: Antegrade Rhythm: Normal Mild to moderate mixed wall plaque is noted at bilateral carotid bifurcations, but PSV is wnl bilater ally. IMPRESSION: No evidence for hemodynamically significant stenosis. Criteria for Assigning % of Stenosis / Diameter reduction (Estimation based on the indirect measurements of the internal carotid artery velocities (ICA PSV). 1. Normal (no stenosis)=ICA PSV < 125 cm/s: ratio < 2.0: ICA EDV<40 cm/s. 2. Less than 50% stenosis=ICA PSV < 125 cm/s: ratio < 2.0: ICA EDV<40 cm/s. 3. 50 to 69% stenosis=ICA PSV of 125 to 230 cm/s: ration 2.0 ? 4.0: ICA EDV 40-100 cm/s. 4. Greater than 70% stenosis to near occlusion= ICA PSV > 230 cm/s: ratio > 4.0: ICA EDV > 100 cm/s. 5. Near occlusion= ICA PSV velocities may be low or undetectable: variable ratio and ICA EDV. 6. Total occlusion=unable to detect flow.
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
[2021-03-20] MEDS: SODIUM CHLORIDE 0.9% 1,000 ML IV SCH ×2 (02:42→08:07)
[2021-03-20] MEDS: ACETAMINOPHEN IV (For NPO) 1,000 MG in EMPTY BAG 1 BAG IVPB PRN (03:02)
[2021-03-20 07:41] LABS: Basophils % (A) 0 %; Eosinophils # (A) 0.2 k/uL (0-0.7); Eosinophils % (A) 3 %; HCT 29.5 % (39.0-53.0); Lymphocytes # (A) 0.8 k/uL (1.0-4.8); Lymphocytes % (A) 13 %; MCH 34.6 pg (25.0-35.0); MCHC 33.9 g/dL (31.0-37.0); MCV 102.1 fL (80.0-100.0); Macrocytosis Slight; Mean Platelet Volume 8.1; Monocytes # (A) 0.7 k/uL (0-1.0); Monocytes % (A) 11 %; Neutrophils # (A) 4.6 k/uL (1.3-7.7); Neutrophils % (A) 71 %; Platelet Count 140 k/uL (150-450); RBC 2.88 m/uL (4.30-5.90); RDW 12.7 % (11.5-15.5); WBC 6.5 k/uL (3.8-10.6)
[2021-03-20] MEDS: SOTALOL 80 MG TAB PO SCH ×2 (08:07→22:35)
[2021-03-20] MEDS: ATORVASTATIN 20 MG TAB PO SCH (08:07)
[2021-03-20] MEDS: MEXILETINE 150 MG CAP PO SCH (08:07)
[2021-03-20] MEDS: ACETAMINOPHEN TAB 325 MG TAB PO PRN (10:59)
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
[2021-03-20 12:00] LABS: African American GFR (CKD) 70.6 (60.0-200.0); Albumin 3.6 g/dL (3.8-4.9); Albumin/Globulin Ratio 1.5 (1.60-3.17); Anion Gap 11.7 mmol/L (10.00-18.00); BUN/Creat Ratio 15.25 Ratio (12.00-20.00); Blood Urea Nitrogen 18.3 mg/dL (9.0-27.0); Calcium 8.8 mg/dL (8.7-10.3); Carbon Dioxide 20.3 mmol/L (20.0-27.5); Globulin 2.4 g/dL (1.6-3.3); Non-African American GFR(CKD) 60.9 (60.0-200.0); Potassium 4.3 mmol/L (3.5-5.5); Total Bilirubin 0.3 mg/dL (0.30-1.20)
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
[2021-03-20 20:24] LABS: Amphetamine Screen,Urine Detected (NotDetected); Barbiturate Screen,Urine Not Detected (NotDetected); Benzodiazepines Screen,Urine Not Detected (NotDetected); Cocaine Screen,Urine Not Detected (NotDetected); Methadone Screen, Urine Not Detected (NotDetected); Opiate Screen,Urine Not Detected (NotDetected); Oxycodone Screen, Urine Not Detected (NotDetected); Phencyclidine Screen,Urine Not Detected (NotDetected); Tricyclic Antidepressant,Urine Not Detected (NotDetected); Urn Cannabinoid Scrn Not Detected (NotDetected)
[2021-03-21] MEDS: ACETAMINOPHEN TAB 325 MG TAB PO PRN ×2 (00:15→08:52)
[2021-03-21] MEDS: MEXILETINE 150 MG CAP PO SCH ×3 (00:53→21:27)
[2021-03-21] MEDS: SODIUM CHLORIDE 0.9% 1,000 ML IV SCH ×2 (08:07→17:44)
[2021-03-21] MEDS: SOTALOL 80 MG TAB PO SCH ×2 (08:51→21:26)
[2021-03-21] MEDS: ATORVASTATIN 20 MG TAB PO SCH (08:51)
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
[2021-03-21] MEDS ORDERED: diphenhydrAMINE 50 MG/ML 1 ML VIAL IVP ONE ×2 (16:20→20:00)
[2021-03-21] MEDS ORDERED: FAMOTIDINE 20 MG/2 ML VIAL IV ONE ×2 (16:20→20:00)
[2021-03-21] MEDS ORDERED: methylPREDNISolone SOD SUCCI 125 MG/2 ML VIAL IV ONE (16:20)
[2021-03-21] MEDS: diphenhydrAMINE 50 MG/ML 1 ML VIAL IVP ONE ×2 (19:18→19:57)
--- NOTE | 2021-03-21 21:02 | CT ---
EXAMINATION TYPE: CT brain wo/w con DATE OF EXAM: 03/21/2021 COMPARISON: 03/18/2021 HISTORY: ams, weakness, recent head injury CT DLP: 2128.6 mGycm Automated exposure control for dose reduction was used. CONTRAST: Performed without and with IV Contrast, patient injected with 100 mL of Isovue 300. There is cerebral atrophy. There is no mass effect nor midline shift. There is no sign of intracrania l hemorrhage. There is 4 x 2 cm area of hypodensity medial left frontal lobe related to old infarct. The calvarium is intact. Contrast images show no pathologic enhancement. IMPRESSION: Cerebral atrophy. 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 There is improvement in the right frontal scalp hematoma compared to old exam. No acute intracranial abnormality.
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
[2021-03-22] MEDS: ACETAMINOPHEN TAB 325 MG TAB PO PRN (00:28)
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
[2021-03-22 06:28] LABS: Basophils % (A) 0 %; Eosinophils % (A) 0 %; HCT 26.8 % (39.0-53.0); HGB 9.2 gm/dL (13.0-17.5); Lymphocytes # (A) 0.6 k/uL (1.0-4.8); Lymphocytes % (A) 10 %; MCH 35.7 pg (25.0-35.0); MCHC 34.5 g/dL (31.0-37.0); MCV 103.4 fL (80.0-100.0); Macrocytosis Slight; Mean Platelet Volume 8.9; Monocytes # (A) 0.3 k/uL (0-1.0); Monocytes % (A) 5 %; Neutrophils # (A) 4.8 k/uL (1.3-7.7); Neutrophils % (A) 83 %; Platelet Count 135 k/uL (150-450); RBC 2.59 m/uL (4.30-5.90); RDW 12.6 % (11.5-15.5); WBC 5.7 k/uL (3.8-10.6)
[2021-03-22] MEDS: MEXILETINE 150 MG CAP PO SCH ×2 (08:23→20:46)
[2021-03-22] MEDS: ATORVASTATIN 20 MG TAB PO SCH (08:23)
[2021-03-22] MEDS: SOTALOL 80 MG TAB PO SCH ×2 (08:24→20:46)
[2021-03-22 10:21] LABS: African American GFR (CKD) 70.6 (60.0-200.0); Blood Urea Nitrogen 13.2 mg/dL (9.0-27.0); Calcium 8.9 mg/dL (8.7-10.3); Non-African American GFR(CKD) 60.9 (60.0-200.0); Potassium 4.4 mmol/L (3.5-5.5)
--- NOTE | 2021-03-22 13:12 | P.PN ---
Progress Note - Text Progress Note Date: 03/22/21 PInterval History: Patient was seen at bedside with his daughter present. Patient is agreeable to the psychiatric interview with her present and her providing collateral information. The patient reports that he had some difficult sleeping last night but repeats this to not being on his own bed. He is currently not reporting any significant psychiatric pathology at this time. He is not reporting any depression, anxiety, suicidal or homicidal ideation, intention, and/or plan. He is not reporting any significant manic symptoms either. He denies any increased goal-directed activity, excessive energy, racing thoughts, or mood lability. He is currently not reporting any auditory or visual hallucinations. He denies any paranoia or other delusions at this time. The patient does acknowledge that when he was psychotic, he was experiencing auditory hallucinations which she believed was "the Lord." His daughter at bedside states that the patient appeared to have some confusion about orientation. He is currently alert and oriented in all spheres. Mental Status Exam: General Appearance: Patient appears his stated age, with fair hygiene and grooming, with noticeable laceration that is healing and stitched on his right forehead. Friendly on approach. Behavior: Patient is calmly seated without any agitated behavior. Eye contact is appropriate. Speech: Patient's speech is fluent and nonpressured. Spontaneous with normal rate and volume. Mood/Affect: Mood is "doing fine," affect is congruent and euthymic to bright Suicidality/Homicidality: Patient denies having any suicidal or homicidal ideation intent or plan. Perceptions: Patient denies any visual hallucinations and denies any auditory hallucinations Though content/process: There is no evidence of any delusional thought content and thought process is linear and goal-directed. Memory and concentration: AOX3, grossly intact for the purposes of this session Judgment and insight: Improving mildly Vital Signs Temp 97.2 F L 03/22/21 13:00 Pulse 66 03/22/21 13:00 Resp 18 03/22/21 13:00 BP 105/68 03/22/21 13:00 Pulse Ox 99 03/22/21 13:00 Intake & Output 03/21/21 03/22/21 03/22/21 18:59 06:59 18:59 Intake Total 900 Balance 900 Intake: Intake, IV Titration 900 Amount Sodium Chloride 0.9% 1, 900 000 ml @ 75 mls/hr IV . [id number] [facility] Rx#:[id number] Other: Voiding Method Bedpan Bedpan Urinal Urinal # Voids 1 2 # Bowel Movements 1 Laboratory Results - Last 24 Hours 03/22/21 03/22/21 05:29 05:29 WBC 5.7 RBC 2.59 L Hgb 9.2 L Hct 26.8 L MCV 103.4 H MCH 35.7 H MCHC 34.5 RDW 12.6 Plt Count 135 L MPV 8.9 Neutrophils % 83 Lymphocytes % 10 Monocytes % 5 Eosinophils % 0 Basophils % 0 Neutrophils # 4.8 Lymphocytes # 0.6 L Monocytes # 0.3 Eosinophils # 0.0 Basophils # 0.0 Macrocytosis Slight Sodium 138 Potassium 4.4 Chloride 107 Carbon Dioxide 18.0 L Anion Gap 13.00 BUN 13.2 Creatinine 1.2 Est GFR (CKD-EPI)AfAm 70.6 Est GFR (CKD-EPI)NonAf 60.9 BUN/Creatinine Ratio 11.00 L Glucose 189 H Calcium 8.9 Assessment Acute psychotic episode; likely multifactorial etiology. - The patient does not have any significant psychiatric history prior to this acute episode. Typically severe mental illness such as bipolar disorder and schizophrenia start in a patients late 20s and early 30s. Furthermore, the episode appears to be very acute in onset and not having occurred over a span of 6 months. Rule out frontotemporal dementia Plan: -Continue your medical management -Continue neurological evaluation for seizure disorder -Medications: At this time, we will hold on any medications. Once neurological workup is complete, we will likely initiate Depakote versus low-dose antipsychotic for management of acute psychosis. -Psychiatry will continue to follow at this time.
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
[2021-03-22] MEDS: SODIUM CHLORIDE 0.9% 1,000 ML IV SCH ×2 (20:49→20:50)
--- NOTE | 2021-03-22 23:33 | EEG ---
ELECTROENCEPHALOGRAM REPORT PROCEDURE DATE: 03/22/2021. ELECTROENCEPHALOGRAM (EEG) REPORT: TECHNIQUE: This is a report from a prolonged 2.5 hour inpatient digital video EEG performed using the 10/20 international electrode placement system. HISTORY: Confusion. OTHER MEDICAL HISTORY: Includes coronary artery disease, hyperlipidemia, hypertension, renal disease. CURRENT MEDICATIONS: Tylenol, Maalox, Lipitor, Mexitil, Zofran, Betapace. FINDINGS: Recording start time: 03/22/2021 at 9:09 am. Recording end time: 03/22/2021 at 11:40 am. EVENTS: During this 2.5 hour inpatient digital EEG, no clinical or electrographic seizures were recorded. Please note that interpretation was performed at 5-microvolt sensitivity. BACKGROUND: The background activity consists of 8-9 hertz rhythmic waveforms symmetric through both posterior quadrants. ACTIVATION: Hyperventilation: Not performed. Photic stimulation: Mild symmetric driving seen. Sleep: Stages I and II sleep noted. ABNORMALITIES: None. IMPRESSION: Normal prolonged 2.5 hour EEG. No clinical or electrographic seizures were recorded. No epileptiform activity was present. MMODL / IJN: [id number] /
[2021-03-23 05:42] LABS: Basophils % (A) 0 %; Eosinophils % (A) 0 %; HCT 29.8 % (39.0-53.0); HGB 10.2 gm/dL (13.0-17.5); Lymphocytes # (A) 1.2 k/uL (1.0-4.8); Lymphocytes % (A) 12 %; MCHC 34.1 g/dL (31.0-37.0); MCV 102.7 fL (80.0-100.0); Macrocytosis Slight; Mean Platelet Volume 8.8; Monocytes # (A) 0.7 k/uL (0-1.0); Monocytes % (A) 7 %; Neutrophils # (A) 7.9 k/uL (1.3-7.7); Neutrophils % (A) 78 %; Platelet Count 188 k/uL (150-450); Poikilocytosis Slight; RDW 12.8 % (11.5-15.5); WBC 10.1 k/uL (3.8-10.6)
[2021-03-23] MEDS: ATORVASTATIN 20 MG TAB PO SCH (08:34)
[2021-03-23] MEDS: SOTALOL 80 MG TAB PO SCH ×2 (08:34→21:24)
[2021-03-23] MEDS: MEXILETINE 150 MG CAP PO SCH ×2 (08:34→21:24)
[2021-03-23 11:29] LABS: African American GFR (CKD) 61.8 (60.0-200.0); Albumin 3.6 g/dL (3.8-4.9); Albumin/Globulin Ratio 1.36 (1.60-3.17); Anion Gap 14.4 mmol/L (10.00-18.00); BUN/Creat Ratio 18.73 Ratio (12.00-20.00); Blood Urea Nitrogen 25.1 mg/dL (9.0-27.0); Carbon Dioxide 20.1 mmol/L (20.0-27.5); Globulin 2.6 g/dL (1.6-3.3); Non-African American GFR(CKD) 53.3 (60.0-200.0); Potassium 4.2 mmol/L (3.5-5.5); Total Bilirubin 0.4 mg/dL (0.30-1.20); Total Protein 6.2 g/dL (6.2-8.2)
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
[2021-03-23] MEDS ORDERED: IV FLUID CONTINUATION 1,000 ML IV ONE ×2 (13:02)
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
--- NOTE | 2021-03-23 13:46 | P.PN ---
Progress Note - Text Progress Note Date: 03/23/21 Interval History: Patient is currently downstairs undergoing a lumbar puncture and could not be assessed today. As per patient's daughter, the patient displayed significant waxing and waning of cognition and would appear to be lucid at times and hyperverbal, labile, and agitated at others. During these episodes he would display poor orientation and confusion. He reportedly had an episode yesterday afternoon that lasted until he went to bed. He reportedly woke up alert and oriented and organized. Mental Status Exam: Could not be completed at this time. Will re-attempt tomorrow. Vital Signs Temp 98.6 F 03/23/21 13:02 Pulse 95 03/23/21 13:02 Resp 18 03/23/21 13:02 BP 136/75 03/23/21 13:02 Pulse Ox 98 03/23/21 13:02 Intake & Output 03/22/21 03/23/21 03/23/21 18:59 06:59 18:59 Intake Total 1000 1475 50 Balance 1000 1475 50 Intake: IV 50 Intake, IV Titration 600 475 Amount Sodium Chloride 0.9% 1, 600 475 000 ml @ 75 mls/hr IV . [id number] [facility] Rx#:[id number] Oral 400 1000 Other: Voiding Method Bedpan Toilet Toilet Urinal Urinal Urinal # Voids 2 3 Laboratory Results - Last 24 Hours 03/22/21 03/23/21 03/23/21 14:11 04:54 04:54 WBC 10.1 RBC 2.90 L Hgb 10.2 L Hct 29.8 L MCV 102.7 H MCH 35.0 MCHC 34.1 RDW 12.8 Plt Count 188 MPV 8.8 Neutrophils % 78 Lymphocytes % 12 Monocytes % 7 Eosinophils % 0 Basophils % 0 Neutrophils # 7.9 H Lymphocytes # 1.2 Monocytes # 0.7 Eosinophils # 0.0 Basophils # 0.0 Poikilocytosis Slight Macrocytosis Slight Sodium 140 Potassium 4.2 Chloride 106 Carbon Dioxide 20.1 Anion Gap 14.40 BUN 25.1 Creatinine 1.3 Est GFR (CKD-EPI)AfAm 61.8 Est GFR (CKD-EPI)NonAf 53.3 L BUN/Creatinine Ratio 18.73 Glucose 167 H Calcium 9.0 Total Bilirubin 0.40 AST 66 H ALT 72 H Alkaline Phosphatase 74 Ammonia Total Protein 6.2 Albumin 3.6 L Globulin 2.6 Albumin/Globulin Ratio 1.36 L TSH 0.742 03/23/21 10:21 WBC RBC Hgb Hct MCV MCH MCHC RDW Plt Count MPV Neutrophils % Lymphocytes % Monocytes % Eosinophils % Basophils % Neutrophils # Lymphocytes # Monocytes # Eosinophils # Basophils # Poikilocytosis Macrocytosis Sodium Potassium Chloride Carbon Dioxide Anion Gap BUN Creatinine Est GFR (CKD-EPI)AfAm Est GFR (CKD-EPI)NonAf BUN/Creatinine Ratio Glucose Calcium Total Bilirubin AST ALT Alkaline Phosphatase Ammonia <9 Total Protein Albumin Globulin Albumin/Globulin Ratio TSH Assessment Acute psychotic episode; likely multifactorial etiology. Rule out frontotemporal dementia vs delirium -Patient presents with waxing and waning cognition. Plan: -Continue your medical management -Continue neurological evaluation - Awaiting lumbar puncture results -Medications: At this time, we will hold on any medications. Once neurological workup is complete, we will likely initiate Depakote versus low-dose antipsychotic for management of acute psychosis. -Will order B12, folate, Ammonia, and syphyllis testing to rule out causes for altered mental status. -Psychiatry will continue to follow at this time.
--- NOTE | 2021-03-23 13:52 | P.PCN ---
Date of Procedure: 03/23/21 Procedure(s) Performed: Preoperative diagnosis: Altered mental status Post operative diagnoses: Altered mental status Procedure= lumbar puncture Anesthesia local infiltration with lidocaine 1% 4 mL. Condition: stable Complication: none. Description of the procedure procedure risk and benefits discussed with the patient and family, consent signed. Patient and the procedure area placed in lateral position ( left side down ), back prepped with chlorhexidine 3 times been local infiltration of the skin and subcutaneous tissue with lidocaine 1% 4 mL for skin and subcu interstitial frustrations at L4 5 levels then 22-gauge Quincke-type needle advanced slowly at L4- 5 interlaminar space there was positive cerebrospinal fluid which was clear, no heme, no paresthesia ,total of 11 ML of clear cerebrospinal fluid collected in 4 different tubes 2-3 mL in each, then the needle removed and a Band-Aid applied and patient tolerated the procedure well without any complications. opening pressure = 35 CM of Water Pausing pressure = 22 CM of water (after removal of 11 ML of his currently cere brospinal fluid )
[2021-03-23 15:25] LABS: Appearance,CSF Clear; CSF Tube Number 4; CSF Tube Volume 3
[2021-03-23 15:31] LABS: Nucleated Cells, CSF 1 u/L (0-5); Red Blood Cell,CSF 110 u/L (0-10)
[2021-03-23 15:32] LABS: Red Blood Cell, CSF Fresh 100 %
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
[2021-03-23 15:54] LABS: Glucose,CSF 86 mg/dL (40-70); Total Protein,CSF 46 mg/dL (12-60)
[2021-03-23] MEDS: SODIUM CHLORIDE 0.9% 1,000 ML IV SCH (17:11)
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
[2021-03-24] MEDS ORDERED: ACETAMINOPHEN TAB 325 MG TAB ONE (02:50)
[2021-03-24] MEDS: SODIUM CHLORIDE 0.9% 1,000 ML IV SCH ×2 (04:21→16:58)
[2021-03-24 08:23] LABS: DNA Double-Stranded NEGATIVE (NEGATIVE); HIV 2 AB Non-Reactive (Non-Reactive); HIV AB P24 Non-Reactive (Non-Reactive); HIV P24 AG Non-Reactive (Non-Reactive)
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
[2021-03-24] MEDS: SOTALOL 80 MG TAB PO SCH ×2 (09:10→20:41)
[2021-03-24] MEDS: MEXILETINE 150 MG CAP PO SCH ×2 (09:12→20:41)
[2021-03-24] MEDS: ATORVASTATIN 20 MG TAB PO SCH (09:12)
[2021-03-24] MEDS: ACETAMINOPHEN TAB 325 MG TAB PO PRN (09:18)
[2021-03-24] MEDS ORDERED: methylPREDNISolone SOD SUCCI 125 MG/2 ML VIAL IV ONE (09:52)
[2021-03-24] MEDS ORDERED: diphenhydrAMINE 50 MG/ML 1 ML VIAL IVP STA ×2 (09:52→16:45)
[2021-03-24] MEDS ORDERED: FAMOTIDINE 20 MG/2 ML VIAL IV ONE (09:52)
--- NOTE | 2021-03-24 10:39 | XR ---
EXAMINATION TYPE: XR Hip RT and AP Pelvis DATE OF EXAM: 03/24/2021 COMPARISON: NONE HISTORY: Pain TECHNIQUE: A single AP view of the pelvis is obtained. Two views of the right hip are obtained. FINDINGS: There is no acute fracture/dislocation evident in the pelvis. The hip and sacroiliac join ts appear symmetric and unremarkable. The overlying soft tissue appears unremarkable. Vascular calci fications in the pelvis are seen. Mild osteitis of the pubic symphysis. Hypertrophic changes of the a cetabulum. Hypertrophic and degenerative change of the spine. Degenerative changes lower lumbar spine . IMPRESSION: There is no acute fracture or dislocation in the pelvis or right hip.
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
[2021-03-24 11:43] VITALS: BMI 25.0
--- NOTE | 2021-03-24 12:51 | P.PN ---
Progress Note - Text Progress Note Date: 03/24/21 Interval History: Patient was seen at bedside with family present in the room including his son, daughter, granddaughter and grandson. He is currently alert and oriented in all spheres. Family continues to express concern that the patient continues to exhibit increased psychomotor activity and will go from periods of lucidity to periods of manic-like symptoms where he would be expansive, rapid in speech and thought, and endorsing bizarre or grandiose delusions and plans. The patient laura is not reporting any issues regarding his sleep or appetite. He reports no suicidal or homicidal ideation, intention, and/or plan. He reports no auditory or visual hallucinations at this time. Mental Status Exam: General Appearance: Patient appears his stated age, with fair hygiene and grooming, with noticeable laceration that is healing and stitched on his right forehead. Friendly on approach. Behavior: Patient is calmly seated without any agitated behavior. Eye contact is intermittent. Speech: Patient's speech is fluent and nonpressured. Spontaneous with normal ra te and volume. Mood/Affect: Mood is "feeling okay," affect is congruent and euthymic to bright. At times somnolent. Suicidality/Homicidality: Patient denies having any suicidal or homicidal ideation intent or plan. Perceptions: Patient denies any visual hallucinations and denies any auditory hallucinations Though content/process: There is no evidence of any delusional thought content and thought process is linear and goal-directed. Memory and concentration: AOX3, grossly intact for the purposes of this session Judgment and insight: Improving mildly Laboratory Results - Last 24 Hours 03/22/21 03/23/21 03/23/21 10:21 10:21 10:21 ESR C-Reactive Protein 7.80 H Vitamin B12 >2000.0 H Folate CSF Tube Number CSF Volume CSF Appearance CSF Color CSF RBC CSF Tot Nucleated Cells CSF Fresh RBCs CSF Glucose CSF Total Protein VIRGEN Screen Double Strand DNA Ab Anti-DNA Ab Interp Treponema pallidum Ab Nonreactive HIV-1 Antibody HIV Ag/Ab Interpret HIV p24 Antibody HIV-2 Antibody HIV P24 Antigen 03/23/21 03/23/21 03/23/21 10:21 10:21 10:21 ESR C-Reactive Protein Vitamin B12 Folate >20.00 CSF Tube Number CSF Volume CSF Appearance CSF Color CSF RBC CSF Tot Nucleated Cells CSF Fresh RBCs CSF Glucose CSF Total Protein VIRGEN Screen NEGATIVE Double Strand DNA Ab NEGATIVE Anti-DNA Ab Interp 1.0 Treponema pallidum Ab HIV-1 Antibody Non-Reactive HIV Ag/Ab Interpret HIV p24 Antibody Non-Reactive HIV-2 Antibody Non-Reactive HIV P24 Antigen Non-Reactive 03/23/21 03/23/21 13:36 14:30 ESR 85 H C-Reactive Protein Vitamin B12 Folate CSF Tube Number 4 CSF Volume 3 CSF Appearance Clear CSF Color Colorless CSF RBC 110 H CSF Tot Nucleated Cells 1 CSF Fresh RBCs 100 CSF Glucose 86 H CSF Total Protein 46 VIRGEN Screen Double Strand DNA Ab Anti-DNA Ab Interp Treponema pallidum Ab HIV-1 Antibody HIV Ag/Ab Interpret HIV p24 Antibody HIV-2 Antibody HIV P24 Antigen Vital Signs Temp 97.8 F 03/24/21 11:21 Pulse 59 L 03/24/21 11:21 Resp 16 03/24/21 11:21 BP 109/74 03/24/21 11:21 Pulse Ox 95 03/24/21 11:21 Intake & Output 03/23/21 03/24/21 03/24/21 18:59 06:59 18:59 Intake Total 950 100 Balance 950 100 Weight 83.733 kg Intake: IV 50 Intake, IV Titration 900 Amount Sodium Chloride 0.9% 1, 900 000 ml @ 75 mls/hr IV . [id number] [facility] Rx#:[id number] Oral 100 Other: Voiding Method Toilet Toilet Urinal Urinal # Voids 1 Assessment Acute psychotic episode; likely multifactorial etiology. Elevated pressures on LP. Plan: -Continue your medical management -Labs reviewed - elevated ESR and CR; mildly elevated AST, ALT. LP results nonsignifincant aside from elevated opening pressures. -Continue neurological evaluation -Medications: After significant discussion with the family, we will opt to initiate Depakote 250 mg twice daily for management of manic symptoms with the added benefit of addressing any possible seizure. AST and ALT were reviewed and unconcerning at this time for the initiation of depakote. Ammonia level was normal. Risks, benefits, and treatment alternatives were discussed with the patient and his family. -Psychiatry will continue to follow at this time.
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
[2021-03-24] MEDS: BARIUM SULFATE 450 ML ORAL.SUSP BOTTLE PO PRN ×2 (13:17→16:07)
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
[2021-03-24] MEDS: FAMOTIDINE 20 MG/2 ML VIAL IV SCH (16:57)
--- NOTE | 2021-03-24 18:12 | CT ---
EXAMINATION TYPE: CT ChestAbdPelvis wo/w con DATE OF EXAM: 03/24/2021 COMPARISON: HISTORY: Elevated ESR/CRP. CT DLP: 1972.1 mGycm Automated exposure control for dose reduction was used. CONTRAST: Performed without and with IV Contrast, patient injected with 80ml mL of Isovue 300. Images obtained from the thoracic inlet to the diaphragm without and with IV contrast. There is oral contrast also. FINDINGS: The lungs are clear of consolidation. There are mild bilateral pleural effusions. There is subsegment al atelectasis at the lung bases. Heart is enlarged. Thoracic aorta shows some atheromatous changes. There is intact thoracic aorta. There is no aneurysm or dissection. There is coronary artery calcific ation. There is no pericardial effusion. There is no evidence of filling defect in the pulmonary prabhjot nataliia. Liver spleen pancreas stomach appear intact. The bile ducts are not dilated. There is minimal pericho lecystic fluid. Gallbladder is not dilated. There is no adrenal mass. Kidneys show satisfactory contrast opacification. There is no hydronephrosi s. Delayed images show normal renal excretion. There is no retroperitoneal adenopathy. There is bilat eral perirenal fat stranding. Bladder distends smoothly. There is no inguinal hernia. There is small amount of low-density free fluid in the pelvis. There is no mesenteric edema. There is no ascites or free air. There is no bowel obstruction. There i s no sign of thickened appendix. Appendix not clearly seen. Prostate is enlarged and measures 6.4 cm. The thoracic and lumbar vertebra appear intact. There is no compression fracture. Disc spaces are nury rly normal. There are sternal wires. Bony pelvis is intact. The hip joints are intact. IMPRESSION: Small pleural effusions are new compared to old exam. Cardiomegaly. This could be mild heart failure. Bilateral perirenal fat stranding appears mostly new and also suggestive of heart failure. There is small amount of free fluid in the pelvis that could be minimal ascites. There is some mild gallbladder wall edema or pericholecystic fluid which appears new compared to old exam and could be cholecystitis. However this could also be manifestation of heart failure.
[2021-03-24] MEDS: DIVALPROEX 250 MG TABLET.DR PO SCH (20:41)
[2021-03-25] MEDS: SODIUM CHLORIDE 0.9% 1,000 ML IV SCH (05:39)
[2021-03-25 06:50] LABS: Basophils % (A) 0 %; Eosinophils % (A) 0 %; HCT 29.2 % (39.0-53.0); HGB 9.6 gm/dL (13.0-17.5); Hypochromasia Slight; Lymphocytes # (A) 0.7 k/uL (1.0-4.8); Lymphocytes % (A) 9 %; MCH 35.1 pg (25.0-35.0); MCHC 32.7 g/dL (31.0-37.0); MCV 107.1 fL (80.0-100.0); Macrocytosis Moderate; Monocytes # (A) 0.5 k/uL (0-1.0); Monocytes % (A) 6 %; Neutrophils # (A) 6.7 k/uL (1.3-7.7); Neutrophils % (A) 84 %; Platelet Count 188 k/uL (150-450); Poikilocytosis Slight; RBC 2.73 m/uL (4.30-5.90); RDW 13.5 % (11.5-15.5)
[2021-03-25] MEDS: SOTALOL 80 MG TAB PO SCH ×2 (09:07→20:52)
[2021-03-25] MEDS: ATORVASTATIN 20 MG TAB PO SCH (09:07)
[2021-03-25] MEDS: MEXILETINE 150 MG CAP PO SCH ×2 (09:08→20:52)
[2021-03-25] MEDS: DIVALPROEX 250 MG TABLET.DR PO SCH (09:08)
[2021-03-25] MEDS: FAMOTIDINE 20 MG/2 ML VIAL IV SCH (09:09)
[2021-03-25] MEDS ORDERED: diphenhydrAMINE 50 MG/ML 1 ML VIAL IVP ONE ×2 (09:43→16:30)
[2021-03-25] MEDS ORDERED: FAMOTIDINE 20 MG/2 ML VIAL IV ONE ×2 (09:43→16:30)
[2021-03-25] MEDS ORDERED: methylPREDNISolone SOD SUCCI 125 MG/2 ML VIAL IV ONE (09:43)
[2021-03-25 10:57] LABS: African American GFR (CKD) 73.5 (60.0-200.0); Albumin 3.3 g/dL (3.8-4.9); Albumin/Globulin Ratio 1.34 (1.60-3.17); Anion Gap 12.6 mmol/L (10.00-18.00); BUN/Creat Ratio 16.21 Ratio (12.00-20.00); Blood Urea Nitrogen 18.8 mg/dL (9.0-27.0); Calcium 8.7 mg/dL (8.7-10.3); Carbon Dioxide 17.6 mmol/L (20.0-27.5); Globulin 2.5 g/dL (1.6-3.3); Non-African American GFR(CKD) 63.5 (60.0-200.0); Potassium 4.4 mmol/L (3.5-5.5); Total Bilirubin 0.6 mg/dL (0.30-1.20); Total Protein 5.8 g/dL (6.2-8.2)
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
--- NOTE | 2021-03-25 12:23 | P.PN ---
Progress Note - Text Progress Note Date: 03/25/21 Interval History: Patient was seen at bedside with his daughter in the room at his side. He is c urrently alert and oriented in all spheres. He claims that he is doing better today compared to yesterday. He states that he feels Depakote has been helps stabilizing his mood and making them less confused. He states that he did have some difficulty regulating his sleep last night and was up in the middle the night and requesting to make a sandwich with his daughter. He quickly remembered that he is not hospital and wanted to call for a sandwich instead. He claims that his mood and anxiety been improving. He claims that he does have improvement in his appetite. He appeared to be fairly directable during conversation was appropriate. He appeared to have fair attention span. He spoke about getting more imaging done today. Patient's daughter asked several questions about his diagnosis and treatment planning. Patient is not endorsing any delusions today. He reports no suicidal or homicidal ideation, intention, and/or plan. He reports no auditory or visual hallucinations at this time. He has been taking his medications as prescribed. Reporting no Mental Status Exam: General Appearance: Patient appears his stated age, with fair hygiene and grooming, with noticeable laceration that is healing and stitched on his right forehead. Friendly Behavior: Patient is calmly seated without any agitated behavior. Eye contact is fair Speech: Patient's speech is fluent and nonpressured. Spontaneous with normal rate and volume. Mood/Affect: Mood is "good," affect is congruent and euthymic to bright. Suicidality/Homicidality: Patient denies having any suicidal or homicidal idea tion intent or plan. Perceptions: Patient denies any visual hallucinations and denies any auditory hallucinations Though content/process: There is no evidence of any delusional thought content and thought process is linear and goal-directed. Memory and concentration: AOX3, grossly intact for the purposes of this session Judgment and insight: Improving mildly Assessment Acute psychotic episode; likely multifactorial etiology. Elevated pressures on LP. Plan: -Continue your medical management -patient will undergo CT scans today for further work up. He is being followed by neurology and appreciate their recommendations. -Medications: switched Depakote ER 500 mg QHS for management of manic symptoms with the added benefit of addressing any possible seizure. added melatonin 3 mg qhs for sleep cycle regulation. -Psychiatry will continue to follow tomorrow.
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
[2021-03-25] MEDS: DIVALPROEX ER 500 MG TAB.ER.24H PO SCH (20:52)
[2021-03-25] MEDS: MELATONIN 3 MG TABLET PO SCH (21:07)
[2021-03-26 04:56] LABS: Basophils % (A) 0 %; Eosinophils % (A) 0 %; HCT 31.2 % (39.0-53.0); Hypochromasia Moderate; Lymphocytes # (A) 0.8 k/uL (1.0-4.8); Lymphocytes % (A) 7 %; MCH 35.8 pg (25.0-35.0); Macrocytosis Marked; Mean Platelet Volume 9.3; Monocytes # (A) 0.5 k/uL (0-1.0); Monocytes % (A) 4 %; Neutrophils # (A) 9.2 k/uL (1.3-7.7); Neutrophils % (A) 87 %; Platelet Count 235 k/uL (150-450); Poikilocytosis Slight; RBC 2.79 m/uL (4.30-5.90); RDW 13.7 % (11.5-15.5); WBC 10.5 k/uL (3.8-10.6)
[2021-03-26 05:12] LABS: MCV 111.8 fL (80.0-100.0)
[2021-03-26] MEDS ORDERED: LACTATED RINGERS 1,000 ML IV ONE ×2 (08:59)
--- NOTE | 2021-03-26 09:39 | P.PCN ---
Date of Procedure: 03/26/21 Procedure(s) Performed: Preoperative diagnosis: Altered mental status Post operative diagnoses: Altered mental status Procedure= lumbar puncture Anesthesia local infiltration with lidocaine 1% 4 mL only . Condition: stable Complication: none. Description of the procedure procedure risk and benefits discussed with the patient and family, consent signed. Patient and the procedure area placed in lateral position ( left side down ), back prepped with chlorhexidine 3 times been local infiltration of the skin and subcutaneous tissue with lidocaine 1% 4 mL for skin and subcu interstitial frustrations at L4 5 levels then 22-gauge Quincke-type needle advanced slowly at L4- 5 interlaminar space there was positive cerebrospinal fluid which was clear, no heme, no paresthesia ,total of 10 ML of clear cerebrospinal fluid collected in 4 different tubes , then the needle removed and a Band-Aid applied and patient tolerated the procedure well without any complications. opening pressure = 28 CM of Water Pausing pressure = 11 CM of water (after removal of 10 ML of Clear cerebro spinal fluid )
[2021-03-26 09:48] LABS: VDRL, Qualitative CSF Nonreactive (Nonreactive)
[2021-03-26] MEDS: FAMOTIDINE 20 MG/2 ML VIAL IV SCH (10:20)
[2021-03-26] MEDS: acetaZOLAMIDE 250 MG TAB PO SCH ×2 (10:24→20:12)
[2021-03-26] MEDS: SOTALOL 80 MG TAB PO SCH ×2 (10:24→20:12)
[2021-03-26] MEDS: MEXILETINE 150 MG CAP PO SCH ×2 (10:24→20:14)
[2021-03-26 10:30] LABS: African American GFR (CKD) 64.1 (60.0-200.0); Albumin 3.6 g/dL (3.8-4.9); Albumin/Globulin Ratio 1.33 (1.60-3.17); Anion Gap 16.7 mmol/L (10.00-18.00); BUN/Creat Ratio 17.69 Ratio (12.00-20.00); Calcium 9.1 mg/dL (8.7-10.3); Carbon Dioxide 17.3 mmol/L (20.0-27.5); Globulin 2.7 g/dL (1.6-3.3); Non-African American GFR(CKD) 55.3 (60.0-200.0); Potassium 4.4 mmol/L (3.5-5.5); Total Bilirubin 0.4 mg/dL (0.30-1.20); Total Protein 6.3 g/dL (6.2-8.2)
[2021-03-26] MEDS ORDERED: FUROSEMIDE 10 MG/ML 4 ML VIAL IV STA (11:19)
[2021-03-26 12:16] LABS: Appearance,CSF Clear; CSF Tube Number 4; CSF Tube Volume 1
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
[2021-03-26 12:34] LABS: Glucose,CSF 123 mg/dL (40-70); Total Protein,CSF 57 mg/dL (12-60)
[2021-03-26 12:45] LABS: Nucleated Cells, CSF 0 u/L (0-5); Red Blood Cell,CSF 29 u/L (0-10)
[2021-03-26 12:46] LABS: Red Blood Cell, CSF Crenated 2 %; Red Blood Cell, CSF Fresh 98 %
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
--- NOTE | 2021-03-26 13:31 | P.PN ---
Progress Note - Text Progress Note Date: 03/26/21 Interval History: Patient was seen at bedside with family present in the room including his son, daughter, and son-in-law. He and his family are reporting significant improvement in regards to his mood lability, racing thoughts, and expansive affect. The patient appears to be more at baseline as per discussion with the patient's family. He has been sleeping at regular hours and it appears to be less confused and is alert and oriented in all spheres at this time. The p atient is currently not reporting any significant psychiatric pathology at this time. He is not reporting any suicidal or homicidal ideation, intention, and/or plan. He is not reporting any auditory or visual hallucinations. He makes no mention of any paranoia or other delusions. The patient is tolerating the medications well and is not reporting any significant side effects at this time. Mental Status Exam: General Appearance: Patient appears his stated age, with fair hygiene and grooming, with noticeable laceration that is healing and stitched on his right forehead. Friendly on approach. Behavior: Patient is calmly seated without any agitated behavior. Eye contact is good. Speech: Patient's speech is fluent and nonpressured. Spontaneous with normal rate and volume. Mood/Affect: Mood is "feeling really good." Affect is euthymic to bright. Suicidality/Homicidality: Patient denies having any suicidal or homicidal ideation intent or plan. Perceptions: Patient denies any visual hallucinations and denies any auditory hallucinations Though content/process: There is no evidence of any delusional thought content and thought process is linear and goal-directed. Memory and concentration: AOX3, grossly intact for the purposes of this session Judgment and insight: Improved Assessment Acute psychotic episode; likely multifactorial etiology. Elevated LP opening pressures Plan: -Continue your medical management -Medications: Contine Depakote ER 500 mg at bedtime and melatonin 3 mg at bedtime for management of mood stability, possible seizure, and sleep hygiene. -Patient is psychiatrically cleared for discharge. Psychiatry will sign off at this time. If there is any concern or questions, please contact us or reconsult us if necessary.
[2021-03-26] MEDS: ATORVASTATIN 20 MG TAB PO SCH (14:05)
[2021-03-26] MEDS: BUMETANIDE 1 MG TAB PO SCH ×2 (14:17→20:10)
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
[2021-03-26] MEDS: DIVALPROEX ER 500 MG TAB.ER.24H PO SCH (20:10)
[2021-03-26] MEDS: APIXABAN 5 MG TAB PO SCH (20:10)
[2021-03-26] MEDS: carvediloL 3.125 MG TAB PO SCH (20:14)
[2021-03-26] MEDS: MELATONIN 3 MG TABLET PO SCH (20:30)
[2021-03-27] MEDS ORDERED: BUMETANIDE 1 MG TAB PO SCH ×2 (09:00→15:00)
[2021-03-27 09:20] VITALS: BP 120/71; RESP 18; TEMP 98.5
[2021-03-27] MEDS: APIXABAN 5 MG TAB PO SCH (09:21)
[2021-03-27] MEDS: carvediloL 3.125 MG TAB PO SCH (09:21)
[2021-03-27] MEDS: acetaZOLAMIDE 250 MG TAB PO SCH (09:21)
[2021-03-27] MEDS: MEXILETINE 150 MG CAP PO SCH (09:21)
[2021-03-27] MEDS: SOTALOL 80 MG TAB PO SCH (09:21)
[2021-03-27] MEDS: FAMOTIDINE 20 MG/2 ML VIAL IV SCH (09:22)
[2021-03-27] MEDS: BUMETANIDE 1 MG TAB PO SCH (09:22)
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
[2021-03-27 12:31] VITALS: PULSE 59
--- NOTE | 2021-03-27 14:14 | ECHOF ---
Referral Reason:possible heart failure MEASUREMENTS -------- HEIGHT: 182.9 cm WEIGHT: 83.5 kg BP: 116/75 RVIDd: 3.7 cm (< 3.3) IVSd: 1.1 cm (0.6 - 1.1) LVIDd: 7.5 cm (3.9 - 5.3) LVPWd: 1.2 cm (0.6 - 1.1) IVSs: 1.6 cm LVIDs: 6.3 cm LVPWs: 1.2 cm LA Diam: 4.7 cm (2.7 - 3.8) LAESV Index (A-L): 41.17 ml/m Ao Diam: 3.6 cm (2.0 - 3.7) AV Cusp: 1.9 cm (1.5 - 2.6) MV EXCURSION: 15.618 mm (> 18.000) MV EF SLOPE: 22 mm/s (70 - 150) EPSS: 3.3 cm RAP: 15.00 mmHg RVSP: 51.49 mmHg FINDINGS -------- Resting bradycardia (HR<60bpm). This was a technically adequate study. The left ventricle is severely dilated. There is borderline concentric left ventricular hypertrophy . Overall left ventricular systolic function is severely impaired with, an EF < 20%. The right ventricle is mild to moderately enlarged. LA is severely dilated >40 ml/m2 The right atrium is normal in size. Interatrial and interventricular septum intact. The aortic valve is trileaflet, and appears structurally normal. No aortic stenosis or regurgitation. [id number] mitral regurgitation is present. Moderate to severe tricuspid regurgitation present. There is moderate pulmonary hypertension. The right ventricular systolic pressure, as measured by Doppler, is 51.49mmHg. Trace/mild (physiologic) pulmonic regurgitation. The aortic root size is normal. The inferior vena cava is dilated with poor inspiratory collapse which is consistent with estimated r ight atrial pressure of 15 mmHg. There is no pericardial effusion. CONCLUSIONS -------- 1. The left ventricle is severely dilated. 2. There is borderline concentric left ventricular hypertrophy. 3. Overall left ventricular systolic function is severely impaired with, an EF < 20%. 4. The right ventricle is mild to moderately enlarged. 5. LA is severely dilated >40 ml/m2 6. The aortic valve is trileaflet, and appears structurally normal. No aortic stenosis or regurgitati on. 7. [id number] mitral regurgitation is present. 8. Moderate to severe tricuspid regurgitation present. 9. There is moderate pulmonary hypertension. 10. The right ventricular systolic pressure, as measured by Doppler, is 51.49mmHg. 11. Trace/mild (physiologic) pulmonic regurgitation. 12. The inferior vena cava is dilated with poor inspiratory collapse which is consistent with estimat ed right atrial pressure of 15 mmHg. 13. There is no pericardial effusion. STORE STOCK HELP: Lisa Mae RDCS
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
== END 2021-03-27 15:35 | disposition home or self-care (01) | DRG 71 ==
LOC: EC 21:25 → 5NMEDONC 22:54
PROVIDERS: ADMIT Internal Medicine; ATTEND Internal Medicine
PROC: 4A00X4Z Measurement of Central Nervous Electrical Activity, External Approach (ICD-10-PCS; 2021-03-19)
PROC: 4A10X4Z Monitoring of Central Nervous Electrical Activity, External Approach (ICD-10-PCS; 2021-03-22)
PROC: 0HQ0XZZ Repair Scalp Skin, External Approach (ICD-10-PCS; 2021-03-23)
PROC: 009U3ZX Drainage of Spinal Canal, Percutaneous Approach, Diagnostic (ICD-10-PCS; principal; 2021-03-26 14:45)
DX: G93.49 Other encephalopathy (principal); S22.31XA Fracture of one rib, right side, initial encounter for closed fracture; I13.0 Hypertensive heart and chronic kidney disease with heart failure and stage 1 through stage 4 chronic kidney disease, or unspecified chronic kidney disease; N17.9 Acute kidney failure, unspecified; G45.9 Transient cerebral ischemic attack, unspecified; J98.11 Atelectasis; S01.01XA Laceration without foreign body of scalp, initial encounter; E03.9 Hypothyroidism, unspecified; E11.22 Type 2 diabetes mellitus with diabetic chronic kidney disease; E78.5 Hyperlipidemia, unspecified; E86.0 Dehydration; F19.90 Other psychoactive substance use, unspecified, uncomplicated; I25.10 Atherosclerotic heart disease of native coronary artery without angina pectoris; I25.2 Old myocardial infarction; I25.5 Ischemic cardiomyopathy; I34.0 Nonrheumatic mitral (valve) insufficiency; I44.30 Unspecified atrioventricular block; I48.0 Paroxysmal atrial fibrillation; F41.9 Anxiety disorder, unspecified; G93.89 Other specified disorders of brain; S00.532A Contusion of oral cavity, initial encounter; N18.30 Chronic kidney disease, stage 3 unspecified; S70.01XA Contusion of right hip, initial encounter; S00.03XA Contusion of scalp, initial encounter; Z95.810 Presence of automatic (implantable) cardiac defibrillator; Z95.1 Presence of aortocoronary bypass graft; Z95.0 Presence of cardiac pacemaker; Z87.891 Personal history of nicotine dependence; Z86.79 Personal history of other diseases of the circulatory system; Z86.73 Personal history of transient ischemic attack (TIA), and cerebral infarction without residual deficits; Z82.49 Family history of ischemic heart disease and other diseases of the circulatory system; Z79.899 Other long term (current) drug therapy; Z79.890 Hormone replacement therapy; Z79.82 Long term (current) use of aspirin; Z79.01 Long term (current) use of anticoagulants; Y92.410 Unspecified street and highway as the place of occurrence of the external cause; V47.5XXA Car driver injured in collision with fixed or stationary object in traffic accident, initial encounter; Y92.9 Unspecified place or not applicable; V89.2XXA Person injured in unspecified motor-vehicle accident, traffic, initial encounter; F20.9 Schizophrenia, unspecified; F31.9 Bipolar disorder, unspecified; I50.9 Heart failure, unspecified; Z76.82 Awaiting organ transplant status; R79.82 Elevated C-reactive protein (CRP); R70.0 Elevated erythrocyte sedimentation rate
CPT/HCPCS: 36415; 62270; 70450; 70470; 71045; 71046; 71270; 72125; 72170; 73502; 74176; 74178; 80048; 80053; 80306; 80320; 81003; 82140; 82607; 82746; 82945; 84157; 84443; 84484; 85025; 85610; 85652; 85730; 86038; 86140; 86225; 86480; 86592; 86780; 86850; 86900; 86901; 87070; 87205; 87252; 87327; 87390; 87496; 87498; 87529; 87798; 87801; 88108; 89050; 90715; 93005; 93306; 93880; 95713; 95816; 99285